=== PATIENT | male | born 1985 | race Caucasian/White ===

== ENCOUNTER 2021-05-27 16:21 | Emergency (ER) | payer OTHER ==
[~2021-05-27] VITALS: Ht 177.8 cm; Wt 95.7 kg
[2021-05-27] MEDS ORDERED: OLANZAPINE10 MG PO (17:25)
[2021-05-27] MEDS ORDERED: VISTARIL25 MG PO (17:25)
[2021-05-27] MEDS ORDERED: MUPIROCIN22 GM TOP (19:36)
== END 2021-05-27 19:51 | disposition home or self-care (01) ==
LOC: ED 16:21
DX: S00.01XA Abrasion of scalp, initial encounter (principal); S00.03XD Contusion of scalp, subsequent encounter; Z88.8 Allergy status to other drugs, medicaments and biological substances; Z79.899 Other long term (current) drug therapy; W22.09XA Striking against other stationary object, initial encounter
CPT/HCPCS: 99283

== ENCOUNTER 2022-01-12 12:20 | Emergency (ER) | payer OTHER ==
[~2022-01-12] VITALS: Ht 177.8 cm; Wt 95.7 kg
[~2022-01-12 12:20] MED LIST: MUPIROCIN22 GM TOP; OLANZAPINE10 MG PO; VISTARIL25 MG PO
[2022-01-12] MEDS ORDERED: LEXAPRO10 MG PO (12:30)
[2022-01-12] MEDS ORDERED: ABILIFY10 MG PO (12:30)
[2022-01-12] MEDS ORDERED: REMERON15 MG PO (12:31)
== END 2022-01-12 13:16 | disposition home or self-care (01) ==
LOC: ED 12:20
DX: S06.9X0A Unspecified intracranial injury without loss of consciousness, initial encounter (principal); V89.2XXA Person injured in unspecified motor-vehicle accident, traffic, initial encounter; Z88.8 Allergy status to other drugs, medicaments and biological substances; Z79.899 Other long term (current) drug therapy
CPT/HCPCS: J2060

== ENCOUNTER 2022-03-24 20:15 | Emergency (ER) | payer OTHER ==
[~2022-03-24] VITALS: Ht 177.8 cm; Wt 142.4 kg
[~2022-03-24 20:15] MED LIST changes: +ABILIFY10 MG PO; +LEXAPRO10 MG PO; +REMERON15 MG PO
[2022-03-24] MEDS ORDERED: OLANZAPINE10 MG PO (20:32)
[2022-03-24] MEDS ORDERED: VISTARIL50 MG PO (20:33)
--- NOTE | 2022-03-25 17:25 | EKG ---
[facility] [address] [facility] [place] [address] Signed Sinus tachycardia Otherwise normal ECG No previous ECGs available Confirmed by MOSES BAE MD ([id number] on 03/25/2022 5:25:03 PM Electronically Signed By: MOSES BAE MD 03/25/22 1725 PATIENT NAME: KIRBY RAMOS JAYLEEN Electrocardiogram DATE OF : 89 PHYSICIAN: MOSES BAE MD REPORT #: [id number] REPORT IS CONFIDENTIAL AND NOT TO BE RELEASED WITHOUT AUTHORIZATION
== END 2022-03-24 22:26 | disposition home or self-care (01) ==
LOC: ED 20:15
DX: G40.909 Epilepsy, unspecified, not intractable, without status epilepticus (principal); R00.0 Tachycardia, unspecified; Z79.899 Other long term (current) drug therapy; Z88.8 Allergy status to other drugs, medicaments and biological substances
CPT/HCPCS: 36415; 71045; 80053; 83735; 84484; 85025; 93005; 93010; 99285-25

== ENCOUNTER 2022-04-15 20:44 | Emergency (ER) | payer OTHER ==
[~2022-04-15] VITALS: Ht 177.8 cm; Wt 142.4 kg
[~2022-04-15 20:44] MED LIST changes: +VISTARIL50 MG PO
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
[2022-04-15] MEDS ORDERED: TRAZODONE HCL50 MG PO (21:02)
[2022-04-15] MEDS ORDERED: DEPAKOTE500 MG PO (21:03)
== END 2022-04-15 22:44 | disposition home or self-care (01) ==
LOC: ED 20:44
DX: G40.909 Epilepsy, unspecified, not intractable, without status epilepticus (principal); Z88.8 Allergy status to other drugs, medicaments and biological substances; Z79.899 Other long term (current) drug therapy
CPT/HCPCS: 36415; 70450; 80053; 81001; 84146; 85025; 96374; 96375; 99284-25; J1953; J2250

== ENCOUNTER 2022-04-17 19:28 | Emergency (ER) | payer OTHER ==
[~2022-04-17] VITALS: Ht 177.8 cm; Wt 142.4 kg
[~2022-04-17 19:28] MED LIST changes: +DEPAKOTE500 MG PO; +TRAZODONE HCL50 MG PO
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
== END 2022-04-17 20:44 | disposition home or self-care (01) ==
LOC: ED 19:28
DX: R56.9 Unspecified convulsions (principal); Z88.8 Allergy status to other drugs, medicaments and biological substances; Z79.899 Other long term (current) drug therapy; Z87.820 Personal history of traumatic brain injury
CPT/HCPCS: 36415; 80053; 85025; 99284